=== PATIENT | male | born 1990 | race African-American/Black ===

== ENCOUNTER 2019-01-18 17:42 | Emergency (ER) | payer MEDICAID ==
[~2019-01-18] VITALS: Ht 172.7 cm; Wt 68.0 kg
[2019-01-18] MEDS ORDERED: HYDROCODONE/ACETAMINOPHEN 5/325MG TABLET PO ONE (19:15)
[2019-01-18 20:30] VITALS: BP 119/75
== END 2019-01-18 20:38 | disposition home or self-care (01) ==
LOC: ER 17:42
DX: S60.211A Contusion of right wrist, initial encounter (principal); S50.11XA Contusion of right forearm, initial encounter; F17.200 Nicotine dependence, unspecified, uncomplicated; X58.XXXA Exposure to other specified factors, initial encounter; Y93.89 Activity, other specified; Y92.89 Other specified places as the place of occurrence of the external cause; Y99.8 Other external cause status
CPT/HCPCS: 29125; 73090; 73100; 73120; 99283